=== PATIENT | male | born 1945 | race Caucasian/White ===

== ENCOUNTER 2018-07-30 13:19 | Day surgery (SDC) | payer MEDICARE, BC ==
[~2018-07-30] VITALS: Ht 177.8 cm; Wt 101.5 kg
[~2018-07-30 13:19] MED LIST: ACCUPRIL40MGTAB PO; ACTOPLUS MET 851 TAB PO; AMARYL1 MG PO; CRESTOR40 MG PO; LOFIBRA160 MG PO; NORCO 325 MG-7.1 TAB PO
[2018-07-30 14:17] VITALS: BP 141/69; PULSE 63; TEMP 98.3
[2018-07-30] MEDS ORDERED: PIOGLITAZONE-METFORM PO (14:25)
[2018-07-30] MEDS ORDERED: AMARYL1 MG PO (14:27)
[2018-07-30] MEDS ORDERED: MULTI VITAMINS1 TAB PO (14:30)
[2018-07-30] MEDS ORDERED: EPA FISH OIL1 SGL PO (14:31)
[2018-07-30] MEDS ORDERED: ASPIRIN E.C. 8181 MG PO (14:32)
[2018-07-30 15:40] VITALS: BP 132/66; PULSE 71; TEMP 97.9
[2018-07-30 15:55] VITALS: BP 132/87; PULSE 65
[2018-07-30 16:10] VITALS: BP 120/73; PULSE 56
== END 2018-07-30 16:28 | disposition home or self-care (01) ==
LOC: SDCO 13:19
DX: K44.9 Diaphragmatic hernia without obstruction or gangrene (principal); R13.10 Dysphagia, unspecified; E11.9 Type 2 diabetes mellitus without complications; Z90.49 Acquired absence of other specified parts of digestive tract; Z79.82 Long term (current) use of aspirin; Z79.84 Long term (current) use of oral hypoglycemic drugs
CPT/HCPCS: J2250; J3010; J7030

== ENCOUNTER 2018-09-03 13:06 | Day surgery (SDC) | payer MEDICARE, BC ==
[~2018-09-03] VITALS: Ht 177.8 cm; Wt 102.0 kg
[~2018-09-03 13:06] MED LIST changes: +ASPIRIN E.C. 8181 MG PO; +EPA FISH OIL1 SGL PO; +MULTI VITAMINS1 TAB PO; +PIOGLITAZONE-METFORM PO
[2018-09-03 13:21] VITALS: BP 146/88; PULSE 60; TEMP 97
[2018-09-03] MEDS ORDERED: PRIL40 PO (13:46)
[2018-09-03 14:45] VITALS: BP 114/60; PULSE 66; TEMP 97.3
[2018-09-03 15:00] VITALS: BP 113/54; PULSE 62
[2018-09-03 15:15] VITALS: BP 111/57; PULSE 57
== END 2018-09-03 15:45 | disposition home or self-care (01) ==
LOC: SDCO 13:06
DX: R13.10 Dysphagia, unspecified (principal); Z79.84 Long term (current) use of oral hypoglycemic drugs; Z79.82 Long term (current) use of aspirin
CPT/HCPCS: J2250; J3010; J7030